=== PATIENT | male | born 1990 | race American Indian/Alaskan Native ===

== ENCOUNTER 2021-05-23 19:20 | Emergency (ER) | payer SELFPAY ==
[2021-05-23 19:47] VITALS: BP 110/62
--- NOTE | 2021-05-23 20:16 | Emergency Department Report ---
ED General Adult HPI - General Chief complaint: Back Pain/Injury Stated complaint: LOWER BACK Time Seen by Provider: 05/23/21 20:10 Source: patient Mode of arrival: Ambulatory Limitations: No Limitations - History of Present Illness Initial comments: 30-year-old -[place] male patient without past medical history presents with complaints of low back pain x5 days. Patient states his pain began the day after moving a heavy refrigerator. He describes his pain as a tightness and rates it as a 6/10 in severity. Pain mildly improved with Advil at home per patient. He denies any loss of bladder/bowel control, numbness/tingling/weakness in his limbs, difficulty with ambulation, hematuria/hematochezia, abdominal pain, or history of cancer. -: Sudden - Related Data Previous Rx's Medication Instructions Recorded Last Taken Type Naproxen 500 mg PO BID PRN #20 tablet 05/23/21 Unknown Rx methocarbamoL [Methocarbamol] 750 - 1,500 mg PO TID PRN #24 05/23/21 Unknown Rx tablet Allergies Allergy/AdvReac Type Severity Reaction Status Date / Time No Known Allergies Allergy Unverified 05/23/21 19:47 ED Review of Systems ROS: Stated complaint: LOWER BACK Other details as noted in HPI Constitutional: denies: chills, fever, malaise Gastrointestinal: denies: abdominal pain, hematochezia Genitourinary: denies: hematuria Musculoskeletal: back pain Skin: denies: change in color Neurological: denies: numbness, paresthesias, abnormal gait Hematological/Lymphatic: denies: swollen glands ED Past Medical Hx - Past Medical History Previous Medical History?: No - Surgical History Past Surgical History?: No - Social History Smoking Status: Never Smoker Substance Use Type: None - Medications Home Medications: Home Medications Medication Instructions Recorded Confirmed Last Taken Type Naproxen 500 mg PO BID PRN #20 tablet 05/23/21 Unknown Rx methocarbamoL [Methocarbamol] 750 - 1,500 mg PO TID PRN #24 05/23/21 Unknown Rx tablet ED Physical Exam - General Limitations: No Limitations General appearance: alert, in no apparent distress - Head Head exam: Present: atraumatic, normocephalic - Respiratory Respiratory exam: Absent: respiratory distress - Cardiovascular Cardiovascular Exam: Present: regular rate - Back Exam Back exam: Present: full ROM, paraspinal tenderness (Mild sacroiliac). Absent: vertebral tenderness (No step-offs or obvious deformities) - Neurological Exam Neurological exam: Present: alert, oriented X3, normal gait - Expanded Neurological Exam Expanded Sensory exam: Lower Extremity Light Touch: Normal Motor strength exam: RLE: 4, LLE: 4 - Psychiatric Psychiatric exam: Present: normal affect, normal mood - Skin Skin exam: Present: warm, dry, intact, normal color. Absent: rash ED Course Vital Signs 05/23/21 19:40 Temperature 97.7 F Pulse Rate 67 Respiratory 18 Rate Blood Pressure 110/62 O2 Sat by Pulse 91 Oximetry ED Medical Decision Making - Medical Decision Making 30-year-old -[place] male patient without past medical history presents with complaints of low back pain x5 days. Patient states his pain began the day after moving a heavy refrigerator. He describes his pain as a tightness and rates it as a 6/10 in severity. Pain mildly improved with Advil at home per patient. He denies any loss of bladder/bowel control, numbness/tingling/weakness in his limbs, difficulty with ambulation, hematuria/hematochezia, abdominal pain, or history of cancer. He denies any red flag symptoms. Mild tenderness palpation noted to the sacroiliac joints bilaterally on exam without vertebral tenderness. Patient has full range of motion of the spine and is well-appearing. He is stable for discharge home. We will treat for low back strain with NSAIDs, icing, and muscle relaxers. Recommend follow-up with PCP in 3 to 5 days. Discussed presumptive diagnosis, treatment plan, and signs and symptoms that should prompt immediate return to the emergency department in detail with patient who verbalizes understanding peer Critical care attestation.: If time is entered above; I have spent that time in minutes in the direct care of this critically ill patient, excluding procedure time. ED Disposition Clinical Impression: Low back pain Disposition: HOME / SELF CARE / HOMELESS Is pt being admited?: No Condition: Stable Instructions: Lumbosacral Strain Prescriptions: methocarbamoL [Methocarbamol] 750 - 1,500 mg PO TID PRN #24 tablet PRN Reason: muscle spasm/tightness Naproxen 500 mg PO BID PRN #20 tablet PRN Reason: pain Referrals: [facility] [Provider Group] - 3-5 Days Forms: Work/School Release Form(ED)
== END 2021-05-23 20:51 | disposition home or self-care (01) ==
LOC: ED 19:20
DX: M54.50 Low back pain, unspecified (principal)
CPT/HCPCS: 99282